=== PATIENT | female | born 1980 | race Two or more races ===

== ENCOUNTER 2023-10-01 14:56 | Emergency (ER) | payer SELFPAY ==
[~2023-10-01] VITALS: Ht 154.9 cm; Wt 48.1 kg
[2023-10-01 15:04] VITALS: BP_SYST 142; PULSE 85; RESP 18; TEMP 98.3; O2SAT 98
[2023-10-01 15:20] VITALS: BP_SYST 142; PULSE 85; RESP 18; TEMP 98.3; O2SAT 98
== END 2023-10-01 15:21 ==
LOC: SED 14:56
DX: Z02.89 Encounter for other administrative examinations (principal); N92.6 Irregular menstruation, unspecified
CPT/HCPCS: 99283